=== PATIENT | male | born 1955 | race Caucasian/White ===

== ENCOUNTER 2022-11-08 14:52 | Outpatient (CLI) | payer BC, SELFPAY ==
[2022-11-08 14:02] LABS: Albumin* 4.6 g/dL (3.3-5.0); Chloride* 107 mmol/L (96-114)
[2022-11-08 14:03] LABS: Potassium* 4.2 mmol/L (3.6-5.1); Sodium* 147 mmol/L (135-149)
[2022-11-08 14:04] LABS: Cholesterol* 140 mg/dL (90-199)
[2022-11-08 14:05] LABS: Alanine Aminotransferase* 57 U/L (4-50); Alkaline Phosphatase* 88 U/L (40-150); Aspartate Amino Transferase* 47 U/L (12-35); Bilirubin Total* 0.9 mg/dL (0.1-1.5); Blood Urea Nitrogen* 32 mg/dL (7-30); Carbon Dioxide* 32 mmol/L (20-32); Creatinine* 1.5 mg/dL (0.5-1.5); Estimated Glomerular Filt Rate 51 ml/min; Glucose* 74 mg/dL (60-115); Total Protein* 7.4 g/dL (6.0-8.3); Triglycerides* 111 mg/dL (40-149)
[2022-11-08 14:06] LABS: Calcium* 9.4 mg/dL (8.4-10.6); HDL Cholesterol* 36 mg/dL (>=40); LDL Cholesterol Calculated 82 mg/dL (<100)
[2022-11-08 14:13] LABS: Creatinine Urine 81.4 mg/dL
[2022-11-08 14:16] LABS: Microalbumin Creatinine Ratio 80 mg/g (0-30); Microalbumin Urine 7 mg/dL
== END 2022-11-08 14:53 | disposition home or self-care (01) ==
PROVIDERS: PCP Internal Medicine; Visit Provider Internal Medicine
DX: E10.9 Type 1 diabetes mellitus without complications (principal); E78.5 Hyperlipidemia, unspecified; E66.9 Obesity, unspecified; I10 Essential (primary) hypertension
CPT/HCPCS: 80053; 80061; 82043; 82570

== ENCOUNTER 2022-12-14 11:05 | Outpatient (CLI) | payer BC, SELFPAY ==
--- NOTE | 2022-12-14 11:00 | CRLHL7_ITS ---
For Patients: As a result of the Cures Act, medical imaging exams and procedure reports are released immediately into your electronic medical record. You may view this report before your referring provider. If you have questions, please contact your health care provider. Examination: US abdominal aorta Indication: Abdominal aortic aneurysm screening. Technique: Del Rosario scale and color Doppler images of the aorta and common iliac arteries are obtained. Comparison: None Findings: Proximal aorta: 2.8 x 3.0 cm Mid aorta: 2.1 x 2.2 cm Distal aorta: 1.9 x 1.9 cm Right common iliac artery: 1.1 x 1.1 cm Left common iliac artery: 1.1 x 1.2 cm Impression: No abdominal aortic aneurysm. Dictated by Giuseppe Lauren MD @ 12/14/2022 11:58:24 AM (Electronically Signed)
== END 2022-12-14 11:06 | disposition home or self-care (01) ==
PROVIDERS: PCP Internal Medicine; Visit Provider Internal Medicine
DX: Z13.6 Encounter for screening for cardiovascular disorders (principal)
CPT/HCPCS: 76706

== ENCOUNTER 2023-03-09 15:42 | Outpatient (CLI) | payer OTHER, SELFPAY | END 2023-03-09 15:43 | disposition home or self-care (01) | LOC: NFLDREF 15:45 | PROVIDERS: PCP Internal Medicine; Visit Provider Internal Medicine | DX: I10 Essential (primary) hypertension (principal); E66.9 Obesity, unspecified; E78.5 Hyperlipidemia, unspecified | CPT/HCPCS: 80053 ==